=== PATIENT | female | born 1970 | race Caucasian/White ===

== ENCOUNTER 2020-02-25 07:21 | Day surgery (SDC) | payer OTHER, BC ==
--- OUTSIDE RECORDS SUMMARY | 2020-02-25 07:28 | XMS REPORT | Summary of Care ---
:1970 Author Organization [facility] Address [address] [place] [id number] Care Team Providers Name Role Phone Abimbola Jones Primary Care Provider Reason for Visit Reason Comments Follow-up blood in urine Encounter Details Date Type Department Care Team Description 01/27/2020 Office Visit [facility] Family Maritza Jones FNP Acute cystitis with hematuria (Primary D x); [address] Urinary frequency; [address] [place] [address] Lower abdominal pain; [place], [place] [id number] Blood pressure elevated without history of HTN [id number] [place], [place] [phone] [id number] Allergies No Known Allergiesdocumented as of this encounter (statuses as of 01/27/2020) Medications Medication Sig Dispensed Refills Start Date End Date Status amoxicillin-clavulana TK 1 T PO BID 0 05/16/2017 Active te 875-125 mg per tablet sulfamethoxazole-trim Take 1 tablet by 20 tablet 0 01/27/2020 02/06/2020 Active ethoprim (BACTRIM DS) mouth 2 (two) 800-160 mg per times daily for tabletIndications: 10 days. Acute cystitis with hematuria documented as of this encounter (statuses as of 01/27/2020) Active Problems Problem Noted Date BRBPR (bright red blood per rectum) 05/28/2017 B12 deficiency 11/30/2016 Low serum HDL 11/30/2016 Atypical chest pain 11/24/2016 Family history of premature CAD 11/24/2016 documented as of this encounter (statuses as of 01/27/2020) Social History Tobacco Use Types Packs/Day Years Used Date Never Smoker Smokeless Tobacco: Never Used Alcohol Use Drinks/Week oz/Week Comments Not Asked 0 Standard drinks or equivalent 0.0 Sex Assigned at Date Recorded Not on file Job Start Date Occupation Industry Not on file Not on file Not on file Travel History Travel Start Travel End No recent travel history available. documented as of this encounter Last Filed Vital Signs Vital Sign Reading Time Taken Comments Blood Pressure 148/97 01/27/2020 1:12 PM CDT Pulse 76 01/27/2020 1:11 PM CDT Temperature 37.1 C (98.7 F) 01/27/2020 1:11 PM CDT Respiratory Rate - - Oxygen Saturation - - Inhaled Oxygen Concentration - - Weight 63 kg (139 lb) 01/27/2020 1:11 PM CDT Height - - Body Mass Index 21.13 02/11/2019 8:24 PM CDT documented in this encounter Patient Instructions Patient InstructionsAbimbola Jones FNP - 01/27/2020 1:20 PM CDT Patient Education Bladder Infection,Female (Adult) Urine is normally doesn't have any bacteria in it. But bacteria can get into the urinary tract from the skin around the rectum. Or they can travel in the blood from elsewhere in the body. Once they arein your urinary tract, they can cause infection in the urethra (urethritis), the bladder (cystitis),or the kidneys (pyelonephritis). The most common place for an infection is in the bladder. This is called a bladder infection. This is one of the most common infections in women. Most bladder infections are easily treated. They are not serious unless the infection spreads to the kidney. The phrases "bladder infection," "UTI," and "cystitis" are often used to describe the same thing. But they are not always the same. Cystitis is an inflammation of the bladder. Themost common cause ofcystitis is an infection. Symptoms The infection causes inflammation in the urethra and bladder. This causes many of the symptoms. The most common symptoms of a bladder infection are: Pain or burning when urinating Having to urinate more often than usual Urgent need to urinate Only a small amount of urine comes out Blood in urine Abdominal discomfort. This is usually in the lower abdomen above the pubic bone. Cloudy urine Strong- or bad-smelling urine Unable to urinate (urinary retention) Unable to hold urine in (urinary incontinence) Fever Loss of appetite Confusion (in older adults) Causes Bladder infections are not contagious. You can't get one from someone else, from a toilet seat, or from sharing a bath. The most common cause of bladder infections is bacteria from the bowels. The bacteria get onto the skin around the opening of the urethra. From there, they can get into the urine and travel up to the bladder, causing inflammation and infection. This usually happens because of: Wiping improperly after urinating. Always wipe from front to back. Bowel incontinence Procedures such as having a catheter inserted Older age Not emptying your bladder. This can allow bacteria a chance to grow in your urine. Dehydration Constipation Sex Use of a diaphragm for control Treatment Bladder infections are diagnosed by a urine test. They are treated with antibiotics and usuallyclear up quickly without complications. Treatment helps prevent a more serious kidney infection. Medicines Medicines can help in the treatment of a bladder infection: Take antibiotics until they are used up, even if you feel better. It is important to finish them to make sure the infection has cleared. You can use acetaminophen or ibuprofen for pain, fever, or discomfort, unless another medicine was prescribed. If you have chronic liver or kidney disease, talk with your healthcareprovider beforeusingthese medicines. Also talk with your provider if you've ever had a stomach ulcer or gastrointestinal bleeding, or are taking blood-thinner medicines. If you are givenphenazopydridine to reduce burning with urination, it will cause your urine to become a bright orange color. This can stain clothing. Care and prevention These self-care steps can help prevent future infections: Drink plenty of fluids to prevent dehydration and flush out your bladder. Do thisunless you must restrict fluids for other health reasons, or your doctor told you not to. Proper cleaning after going to the bathroom is important. Wipe from front to back after using thetoilet to prevent the spread of bacteria. Urinate more often. Don't try to hold urine in for a long time. Wear loose-fitting clothes and cotton underwear. Avoid tight-fitting pants. Improve your diet and prevent constipation. Eat more fresh fruit and vegetables, andfiber, and less junk and fatty foods. Avoid sex until your symptoms are gone. Avoid caffeine, alcohol, and spicy foods. These can irritate your bladder. Urinate right after intercourse to flush out your bladder. If you use control pills and have frequent bladder infections, discuss it with your doctor. Follow-up care Call your healthcare provider if all symptoms are not gone after 3 days of treatment. This is especially important if you have repeat infections. If a culture was done, you will be told if your treatment needs to be changed. If directed, you can callto find out the results. If X-rays were done, you will be told if the results will affect yourtreatment. Call 911 Call 911 if any of the following occur: Trouble breathing Hard to wake up orconfusion Fainting or loss of consciousness Rapid heart rate When to seek medical advice Call your healthcare provider right away if any of these occur: Fever of 100.4F (38.0C) or higher, or as directed by your healthcare provider Symptoms are not betterby the third day of treatment Back or belly (abdominal) pain that gets worse Repeated vomiting, or unable to keep medicine down Weakness or dizziness Vaginal discharge Pain, redness, or swelling in the outer vaginal area (labia) Date Last Reviewed: 08/12/201619994036-1302 [employer]. [address] [place], [place] [id number]. All rights reserved. This information is not intended as a substitute for professional medical care. Always follow your healthcare professional's instructions. Patient Education When to Use Antibiotics Antibiotics are medicines used to treat infections caused by bacteria. They dont work for illnesses caused by viruses or an allergic reaction. In fact, taking antibiotics for reasons other than a bacterial infection can cause problems. For example, you may have side effects from the medicine. And if you really need an antibiotic, it may not work well. When antibiotics wont help Your healthcare provider wont usually prescribe antibiotics for the following conditions. You canhelp by not asking for them if you have: A cold. This type of illness is caused by a virus. It can cause a runny nose, stuffed-up nose, sneezing, coughing, headache, mild body aches, and low fever. A cold gets better on its own in a few days to a week. The flu (influenza). This is a respiratory illness caused by a virus. The flu usually goes away on its own in a week or so. It can cause fever, body aches, sore throat, and fatigue. Bronchitis. This is an infection in the lungs most often caused by a virus. You may have coughing, phlegm, body aches, and a low fever. A common type of bronchitis is known as a chest cold (acute bronchitis). This often happens after you have a respiratory infection like a common cold. Bronchitis can take weeks to go away, but antibiotics usually dont help. Most sore throats. Sore throats are most often caused by viruses. Your throat may feel scratchy or achy, and it may hurt to swallow. You may also have a low fever and body aches. A sore throat usually gets better in a few days. Most ear infections. An ear infection may be caused by a virus or bacteria. It causes pain in theear. Antibiotics usually dont help, and the infection goes away on its own. Most sinus infections (sinusitis). This kind of infection causes sinus pain and swelling, and a runny nose. In most cases, sinusitis goes away on its own, and antibiotics dont make recovery quicker. Allergic rhinitis. This is a set of symptoms caused by an allergic reaction. You may have sneezing, a runny nose, itchy or watery eyes, or a sore throat. Allergies are not treated with antibiotics. Low fever. A mild fever thats less than 100.4F (38C) most likely doesnt need treatment with antibiotics. When antibiotics can help Antibiotics can be used to treat: Strep throat. This is a throat infectioncaused by a certain type of bacteria. Symptoms of strep throat include a sore throat, white patches on the tonsils, red spots on the roof of the mouth, fever,body aches, and nausea and vomiting. Urinary tract infection (UTI). This is a bacterial infection of the bladder and the tube that takes urine out of the body. It can cause burning pain and urine thats cloudy or tinted with blood. UTIs are very common. Antibiotics usually help treat these infections. Some ear infections. In some cases, a healthcare provider may prescribe antibiotics for an ear infection. You may need a test to show whats causing the ear infection. Some sinus infections. In some cases, yourhealthcare provider may give you antibiotics. He or shemay first need to make sure your symptoms arent caused by a virus, fungus, allergies, or air pollutants such as smoke. Your doctor may also recommend antibiotics if you have a condition that can affect your immune system, such as diabetes or cancer. Self-care at home If your infection cant be treated with antibiotics, you can take other steps to feel better. Try the remedies below. In general: Rest and sleep as much as needed. Drink water and other clear fluids. Dont smoke, and avoid smoke from other people. Use nbdo-uzt-mvhjboz medicine such as acetaminophen to ease pain or fever, as directed by your healthcare provider. To treat sinus pain or nasal congestion: Put a warm, moist washcloth on your face where you feel sinus pain or pressure. Use a nasal spray with medicine or saline, as directed by your healthcare provider. Breathe in steam from a hot shower. Use a humidifier or cool mist vaporizer. To quiet a cough: Use a humidifier or cool mist vaporizer. Breathe in steam from a hot shower. Use cough lozenges. To sooth a sore throat: Suck on ice chips, popsicles, or lozenges. Use a sore throat spray. Use a humidifier or cool mist vaporizer. Gargle with saltwater. Drink warm liquids. To ease ear pain: Hold a warm, moist washcloth on the ear for 10 minutes at a time. [employer] last reviewed this educational content on 07/13/201619993086-5856 [employer]. [address] [place] [address], [place] [address]. All rights reserved. This information is not intended as a substitute for professional medical care. Always follow your healthcare professional's instructions. Patient Education Understanding Urinary Tract Infections (UTIs) Most UTIs are caused by bacteria, although they may also be caused by viruses or fungi. Bacteria from the bowel are the most common source of infection.The infection may start because of any of the following: Sexual activity. During sex, bacteria can travel from the penis, vagina, or rectum into the urethra. Bacteria on the skinoutside the rectum may travel into the urethra. This is more common in women since the rectum and urethra are closer to each other than in men. Wiping from front to back after using the toilet and keeping the area clean can help prevent germs from getting to the urethra. Blockage of urine flow through the urinary tract. If urine sits too long, germs may start to growout of control. Parts of the urinary tract The infection canoccur in any part of the urinary tract. The kidneys collect and store urine. The ureters carry urine from the kidneys to the bladder. The bladder holds urine until you are ready to let it out. The urethra carries urine from the bladder out of the body. It is shorter in women, so bacteria can move throughit more easily.The urethra is longer in men, so a UTI is less likely to reach the bladder or kidneys in men. [employer] reviewed this educational content on 11/12/201619991333-9185 The [employer]. [address] [place] [address], [place] [address]. All rights reserved. This information is not intended as a substitute for professional medical care. Always follow your healthcare professional's instructions. documented in this encounter Progress Notes Abimbola Jones FNP - 01/27/2020 1:20 PM CDT Cc: Chief Complaint Patient presents with Follow-up blood in urine Ananya Ryan is a 50 year old female. Patient is here with UTI symptoms as detailed below. Started after her menses, she thought it was residual spotting from completing her menses, especially blood when she wipes or urinates. She also hasflank pain on the left side, urgency, frequency and suprapubic pain. She has an appoitment with [facility] next week to discuss this and for PAP, but wanted to r/o other etiology to the hematuria. URINARY TRACT INFECTION Patient presents to clinic today with complaints of flank pain, frequency, hematuria and urgency. This is a new problem. The current episode started in the past 7 days. The problem is unchanged. Her pain is at a severity of 4/10. The pain is mild. Patient describes pain as aching. There has been no fever. She describes her urine color as yellow. Obstructive symptoms do not include dribbling, incomplete emptying, an intermittent stream, a slower stream, straining or a weak stream. Associated symptoms include abdominal pain (suprapubic) and flank pain. Pertinent negatives include no chills, fever, na usea or vomiting. She has tried increased fluids for the symptoms.The treatment provided no relief. Her sexual activity is non-contributory to the current illness. There is no history of kidney stones,recent infection or recurrent UTIs. Allergies Ananya has No Known Allergies. Medications Outpatient Medications Prior to Visit Medication Sig Dispense Refill amoxicillin-clavulanate 875-125 mg per tablet TK 1 T PO BID 0 No facility-administered medications prior to visit. Histories Past Medical History: Diagnosis Date Vertigo saw Neurology Past Surgical History: Procedure Laterality Date SECTION Social History Socioeconomic History Marital status: Spouse name: Not on file Number of children: Not on file Years of education: Not on file Highest education level: Not on file Occupational History Not on file Social Needs Financial resource strain: Not on file Food insecurity: Worry: Not on file Inability: Not on file Transportation needs: Medical: Not on file Non-medical: Not on file Tobacco Use Smoking status: Never Smoker Smokeless tobacco: Never Used Substance and Sexual Activity Alcohol use: Not on file Drug use: Not on file Sexual activity: Not on file Lifestyle Physical activity: Days per week: Not on file Minutes per session: Not on file Stress: Not on file Relationships Social connections: Talks on phone: Not on file Gets together: Not on file Attends uatsdin service: Not on file Active member of club or organization: Not on file Attends meetings of clubs or organizations: Not on file Relationship status: Not on file Intimate partner violence: Fear of current or ex partner: Not on file Emotionally abused: Not on file Physically abused: Not on file Forced sexual activity: Not on file Other Topics Concern Not on file Social History Narrative Not on file Family History Problem Relation Age of Onset No Significant Medical Problems Mother Heart Father Coronary Heart Disease Father No Significant Medical Problems Sister No Significant Medical Problems Brother Review of Systems Constitutional: Negative. Negative for chills and fever. Respiratory: Negative. Negative for apnea, cough, choking, chest tightness, shortness of breath andwheezing. Cardiovascular: Negative. Negative for chest pain, palpitations and leg swelling. Gastrointestinal: Positive for abdominal pain (suprapubic). Negative for nausea and vomiting. Genitourinary: Positive for dysuria, urgency and flank pain. Negative for incomplete emptying. Skin: Negative. Neurological: Negative. Endocrine: Endocrine negative Vital Signs BP (!) 148/97 | Pulse 76 | Temp 37.1 C (98.7 F) (Tympanic) | Wt 139 lb (63 kg) | BMI 21.13 kg/m Physical Exam Constitutional: She is oriented to person, place, and time. She appears well- developed and well-nourished. HENT: Head: Normocephalic. Right Ear: External ear normal. Left Ear: External ear normal. Nose: Nose normal. Neck: Normal range of motion. Neck supple. No JVD present. Cardiovascular: Normal rate, regular rhythm, normal heart sounds and intact distal pulses. Exam reveals no gallop and no friction rub. No murmur heard. Pulmonary/Chest: Effort normal and breath sounds normal. No respiratory distress. She has no wheezes. She has no rales. She exhibits no tenderness. Abdominal: Soft. Bowel sounds are normal. She exhibits no distension. There is no tenderness. There is CVA tenderness (left). Neurological: She is alert and oriented to person, place, and time. Skin: Skin is warm and dry. Capillary refill takes less than 2 seconds. No rash noted. No erythema. No pallor. Psychiatric: She has a normal mood and affect. Nursing note and vitals reviewed. Assessment/Plan 1. Urinary frequency: Will get a POCT UA Component Ref Range & Units 13:35 POCT U SP GRAV 1.005 - 1.025 mg/dl 1.010 POCT PH U 5 - 8 mg/dl 7 POCT U LEUK EST Negative - Negative trace POCT U NIT Negative - Negative negative POCT U PROT Negative - Negative trace POCT U GLU Negative - Negative normal POCT U KETONE Negative - Negative negative POCT U UROBILI 0.2 - 1 mg/dl normal POCT U BILI Negative - Negative negative POCT U BLD Negative - Negative 250 POCT U COLOR POCT U APPEAR Specimen Collected: 01/27/20 13:35 Last Resulted: 01/27/20 13:35 2. UTI: Bactrim given. Increase fluids, namely water. UCx is pending. Discussed ways of decreasing the risk of future UTIs including wiping from front to back, increasing intake of water, emptying the bladder at regular intervals/avoiding holding urine for prolonged periods of time, and urinating after sexual intercourse. 3. Abdominal pain: to r/o other etiology such as kidney stone, will get a KUB, CBC. Further interventions to follow depending on study result. 4. Elevated blood pressure: Monitor blood pressures at home routinely, first thing in the morning and last thing before bed, record the readings. If consistently >130/80, please RTC for management.If with acute chestpain, jaw pain, numbness and tingling radiating to arm, with or without respiratory distress, please go to the ER. Plan of care, desired health behaviors, goals, and medication discussed with patient. Education resources provided and reviewed with AVS. Patient/guardian/family verbalized understanding & agrees to plan of care. This visit did not involve counseling and coordination that comprised more than 50% of the visit time. If applicable, the [place] [employer] database was accessed to review any controlled substance prescription claims data. The [employer] prescription claims data in [employer] was reviewed to assess patient compliance with the medication treatment plan. documented in this encounter Plan of Treatment Name Type Priority Associated Diagnoses Order S chedule URINE CULTURE LAB Routine Urinary frequency Expected: 01/27/2020, Expires: 2020 CBC WITH DIFF LAB Routine Urinary frequency Ordered: 01/27/2020 CBC WITH DIFFERENTIAL LAB Routine Urinary frequency O rdered: 01/27/2020 XR KUB IMAGING Routine Lower abdominal pain Expecte d: 01/27/2020, Expires: 2020 Health Maintenance Due Date Last Done Comments DTaP,Tdap,and Td Vaccines (1 - 1982 Tdap) PAP SMEAR 1992 Breast Cancer Screening 2011 (MAMMOGRAM) INFLUENZA VACCINE (#1) 2019 PNEUMOCOCCAL 0-64 YEARS COMBINED Aged Out No longer eligible based on SERIES patient's age to complete this topic documented as of this encounter Procedures Procedure Name Priority Date/Time Associated Diagnosis Comme nts POCT URINALYSIS Routine 01/27/2020 1:35 PM Urinary frequency Results for this CDT procedure are i n the results section. documented in this encounter Results POCT URINALYSIS W SPECIFIC GRAVITY (01/27/2020 1:35 PM CDT) Pathologist Sig nature POCT U SP GRAV 1.010 1.005 - 1.025 mg/dl POCT PH U 7 5 - 8 mg/dl POCT U LEUK EST trace Negative - Negative POCT U NIT negative Negative - Negative POCT U PROT trace Negative - Negative POCT U GLU normal Negative - Negative POCT U KETONE negative Negative - Negative POCT U UROBILI normal 0.2 - 1 mg/dl POCT U BILI negative Negative - Negative POCT U BLD 250 Negative - Negative POCT U COLOR POCT U APPEAR Specimen Urine - URINE, CLEAN CATCH documented in this encounter Visit Diagnoses Diagnosis Acute cystitis with hematuria - Primary Acute cystitis Urinary frequency Lower abdominal pain Abdominal pain, other specified site Blood pressure elevated without history of HTN Elevated blood pressure reading without diagnosis of hypertension documented in this encounter Insurance Payer Benefit Plan Subscriber ID Effective Dates Phone Address Type / Group AETNA AETNA TRS [id number] 2014-Juan José PPO CARE t [facility] [id number] 2017-Juan José [phone] [address] PPO/POS [facility] t [id number] [place] [address] documented as of this encounter
--- OUTSIDE RECORDS SUMMARY | 2020-02-25 07:29 | XMS REPORT | Summary of Care ---
:1970 Author Organization [facility] Address [address] [place] [address] Care Team Providers Name Role Phone Abimbola Jones STEPDOWN NURSE Primary Care Provider Reason for Referral (Routine) Status Reason Specialty Diagnoses / Referred By Referred To Procedures Contact Contact New Request Urology Diagnoses Hematuria, unspecified type Abimbola Jones, Procedures CONSULT/REFERRAL UROLOGY STEPDOWN NURSE [address] [address] Reason for Visit Reason Comments Follow-up blood in urine Auth/Cert Status Reason Specialty Diagnoses / Procedures Referred By Anuja brown Referred To Contact Phlebotomy Diagnoses Urinary frequency Adc Pob Lab Draw Procedures CBC WITH DIFF CBC WITH DIFFERENTIAL Professional Office [address], [address] [place] [address] Fax: Encounter Details Date Type Department Care Team Description 01/27/2020 Office Visit [facility] Family Maritza Jones STEPDOWN NURSE Acute cystitis with hematuria (Primary D x); Medicine - [place] [address] [address] [facility] Urinary frequency; [facility] Lower abdominal pain; [place] [address] Blood pressure elevated without history of HTN; [address] [place], [place] Hematuria, unspecified type [phone] [address] Allergies No Known Allergiesdocumented as of this encounter (statuses as of 01/29/2020) Medications Medication Sig Dispensed Refills Start Date End Date Status amoxicillin-clavulana TK 1 T PO BID 0 05/16/2017 Active te 875-125 mg per tablet sulfamethoxazole-trim Take 1 tablet by 20 tablet 0 01/27/2020 02/06/2020 Active ethoprim (BACTRIM DS) mouth 2 (two) 800-160 mg per times daily for tabletIndications: 10 days. Acute cystitis with hematuria documented as of this encounter (statuses as of 01/29/2020) Active Problems Problem Noted Date BRBPR (bright red blood per rectum) 05/28/2017 B12 deficiency 11/30/2016 Low serum HDL 11/30/2016 Atypical chest pain 11/24/2016 Family history of premature CAD 11/24/2016 documented as of this encounter (statuses as of 01/29/2020) Social History Tobacco Use Types Packs/Day Years [...] outer vaginal area (labia) Date Last Reviewed: 08/12/201619995064-6158 [employer]. [address] [place] [address], [place] [address]. All rights reserved. This information is not [...] and avoid smoke from other people. Use nszf-iqq-lbkeswj medicine such as acetaminophen to ease pain [...] ear for 10 minutes at a time. [employer] last reviewed this educational content on 07/13/201619995356-97[address] [employer] [place] [address]. All rights reserved. This information is not [...] reach the bladder or kidneys in men. [employer] last reviewed this educational content on 11/12/201619992059-[address] [employer] [place] [address]. All rights reserved. This information is not [...] suprapubic pain. 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 If applicable, the [facility] database was accessed to review any controlled substance prescription claims data. The [employer] prescription claims data in [employer] was reviewed to assess patient compliance with the medication treatment plan. documented in this encounter Plan of Treatment Health Maintenance Due Date Last Done Comments DTaP,Tdap,and Td Vaccines (1 - 1982 Tdap) PAP SMEAR 1992 Breast Cancer Screening 2011 (MAMMOGRAM) INFLUENZA VACCINE (#1) 2019 PNEUMOCOCCAL 0-64 YEARS COMBINED Aged Out No longer eligible based on SERIES patient's age to complete this topic documented as of this encounter Procedures Procedure Name Priority Date/Time Associated Comments Diagnosis CBC WITH DIFFERENTIAL Routine 01/27/2020 2:25 Urinary frequen cy Results for this PM CDT procedure are i n the results section. CBC WITH DIFFERENTIAL Routine 01/27/2020 2:25 Urinary frequen cy Results for this PM CDT procedure are i n the results section. POCT URINALYSIS Routine 01/27/2020 1:35 Urinary frequency Res ults for this PM CDT procedure are i n the results section. URINE CULTURE Routine 01/27/2020 1:33 Urinary frequency Resul ts for this PM CDT procedure are i n the results section. documented in this encounter Results XR KUB (01/27/2020 2:36 PM CDT) Specimen Narrative Performed At HISTORY: Rule out Kidney stones. PACS/VR/DOSE FINDINGS: 2 abdominal radiographs are submitted which showed constipation with retained fecal material and air throughout large bowel. No calcified kidney stones are seen. 3 small calcific ations in the left side of the pelvis are consistent with phleboliths. No organomegaly. No aggressive bone lesi ons. CONCLUSIONS: Constipation. No radiopaque kidney stones visualized. Procedure Note [facility], Radiant Results Inft User - 2019 2:44 PM CDT HISTORY: Rule out Kidney stones. FINDINGS: 2 abdominal radiographs are jimenez bmitted which showed constipation with retained fecal material and air thr oughout large bowel. No calcified kidney stones are seen. 3 small calcific ations in the left side of the pelvis are consistent with phleboliths. No organomegaly. No aggressive bone lesi ons. CONCLUSIONS: Constipation. No radiopaque kidney stones visualized. Performing Organization Address City/State/Zipcode Phone Number PACS/VR/DOSE CBC WITH DIFFERENTIAL (01/27/2020 2:25 PM CDT) Pathologist Sig nature WBC 6.34 4.30 - 11.10 [facility] 10*3/L [facility] RBC 4.24 3.93 - 5.25 [facility] 10*6/L [facility] HGB 10.4 (L) 11.6 - 15.0 [facility] g/dL [facility] HCT 33.8 (L) 35.7 - 45.2 % [facility] MCV 79.7 (L) 80.6 - 95.5 fL [facility] MCH 24.5 (L) 25.9 - 32.8 pg [facility] MCHC 30.8 (L) 31.6 - 35.1 [facility] g/dL [facility] RDW-SD 46.8 39.0 - 49.9 fL [facility] RDW-CV 16.2 (H) 12.0 - 15.5 % [facility] PLT 375 (H) 166 - 358 [facility] 10*3/L [facility] MPV 10.4 9.5 - 12.9 fL [facility] NRBC/100 WBC 0.0 0.0 - 10.0 /100 [facility] WBCs [facility] NRBC x10^3 <0.01 10*3/L [facility] GRAN MAT (NEUT) % 77.1 % [facility] IMM GRAN % 0.50 % [facility] LYMPH % 16.6 % [facility] MONO % 4.1 % [facility] EOS % 1.1 % [facility] BASO % 0.6 % [facility] GRAN MAT x10^3(ANC) 4.89 1.88 - 7.09 [facility] 10*3/uL [facility] IMM GRAN x10^3 0.03 0.00 - 0.06 [facility] 10*3/uL [facility] LYMPH x10^3 1.05 (L) 1.32 - 3.29 [facility] 10*3/uL [facility] MONO x10^3 0.26 (L) 0.33 - 0.92 [facility] 10*3/uL [facility] EOS x10^3 0.07 0.03 - 0.39 [facility] 10*3/uL [facility] BASO x10^3 0.04 0.01 - 0.07 [facility] 10*3/uL [facility] Specimen Blood Performing Organization Address City/State/Zipcode Phone Number [facility] CLIA: [id number], [address] [place], [place] [address] POCT URINALYSIS W SPECIFIC GRAVITY (01/27/2020 1:35 [...] APPEAR Specimen Urine - URINE, CLEAN CATCH URINE CULTURE (01/27/2020 1:33 PM CDT) URINE CULTURE 10,000 - 100,[address] [facility] CFU/mL mixed aerobic SERVICES organisms - suggests endogenous microbial contamination Specimen Urine - URINE, CLEAN CATCH Performing Organization Address City/State/Zipcode Phone Number [facility] SERVICES CLIA: [id number], [address] [place], [place] [address] [facility] documented in this encounter Visit Diagnoses Diagnosis Acute cystitis with hematuria - Primary Acute cystitis Urinary frequency Lower abdominal pain Abdominal pain, other specified site Blood pressure elevated without history of HTN Elevated blood pressure reading without diagnosis of hypertension Hematuria, unspecified type documented in this encounter Insurance Payer Benefit Plan Subscriber ID Effective Dates Phone Address Type / Group AETNA AETNA TRS [id number] 2014-Juan José PPO CARE t [facility] [id number] 2017-Juan José [phone] [address] PPO/POS [place] SELECT t 7 [id number] [place] [address] documented as of this encounter
--- OUTSIDE RECORDS SUMMARY | 2020-02-25 07:29 | XMS REPORT | Summary of Care ---
:1970 Author Organization [facility] Address [address] [place] [address] Care Team Providers Name Role Phone Abimbola Jones Primary Care Provider Reason for Visit Reason Comments LAB WORK Auth/Cert Status Reason Specialty Diagnoses / Procedures Referred By Anuja brown Referred To Contact Phlebotomy Diagnoses Urinary frequency Adc Pob Lab Draw Procedures CBC WITH DIFF CBC WITH DIFFERENTIAL Professional Office [address] , [address] [place] [address] Fax: Encounter Details Date Type Department Care Team Description 01/27/2020 Credit Controller Visit [facility] Abimbola Jones FNP [address] [address] Routine general Professional Office Pob, Adc Lab Main medical examination Building Phlebotomy at a [facility] care Lab facility Professional Office Building [address] [place] [address] , [address] [place] [address] Allergies No Known Allergiesdocumented as of this [...] of this encounter Last Filed Vital Signs Not on filedocumented in this encounter Plan of Treatment Date Type Specialty Care Team Description 01/27/2020 Hospital Encounter Radiology Maritza Jones, DIVINA Arrived [address] [address] Health Maintenance Due Date Last Done Comments DTaP,Tdap,and Td Vaccines (1 - 1982 Tdap) PAP SMEAR 1992 Breast Cancer Screening 2011 (MAMMOGRAM) INFLUENZA VACCINE (#1) 2019 PNEUMOCOCCAL 0-64 YEARS COMBINED Aged Out No longer eligible based on SERIES patient's age to complete this topic documented as of this encounter Results Not on filedocumented in this encounter Visit Diagnoses Diagnosis Routine general medical examination at a health care facility documented in this encounter Insurance Payer Benefit Plan Subscriber ID Effective Dates Phone Address Type / Group AETNA AETNA TRS [id number] 2014-Presen PPO CARE t [employer] [place] [id number] 2017-Juan José [phone] [address] PPO/POS [place] SELECT t 7 [id number] [place] [address] documented as of this encounter
--- OUTSIDE RECORDS SUMMARY | 2020-02-25 07:29 | XMS REPORT | Summary of Care ---
:1970 Author Organization [facility] Address [address] [place] [address] Care Team Providers Name Role Phone Abimbola Jones Primary Care Provider Reason for Visit Reason Comments Follow-up blood in urine Encounter Details Date Type Department Care Team Description 01/27/2020 Office Visit [facility] Family Maritza Jones FNP Acute cystitis with hematuria (Primary D x); [address] Urinary frequency; [address] [place] [address] Lower abdominal pain; [place], [place] [id number] Blood pressure elevated without history of HTN [address] [place], [place] [phone] Allergies No Known Allergiesdocumented as of this [...] documented in this encounter Patient Instructions Patient InstructionsAibmbola Jones FNP - 01/27/2020 1:20 PM CDT [...] outer vaginal area (labia) Date Last Reviewed: 08/12/201619997269-2301 [employer] [address] [place], [place] [id number]. All rights reserved. This information is not [...] and avoid smoke from other people. Use ywmh-ezl-azszvqa medicine such as acetaminophen to ease pain [...] ear for 10 minutes at a time. [employer] last reviewed this educational content on 07/13/201619993767-0742 [employer] [address] [place] [address], [place] [address]. All rights reserved. This information is not [...] reach the bladder or kidneys in men. [employer] reviewed this educational content on 11/12/201619993264-8052 [employer] [address] [place] [address], [place] [address]. All rights reserved. This information is not [...] suprapubic pain. She has an appoitment with GLOVE CLEANER next week to discuss this and for [...] of the visit time. If applicable, the [place] [employer] database was accessed to review any controlled substance prescription claims data. The [employer] prescription claims data in [employer] was reviewed to assess patient compliance with [...] Address Type / Group AETNA AETNA TRS [id number] 2014-Juan José PPO CARE t [facility] [id number] 2017-Juan José [phone] [address] PPO/POS [facility] t 7 [id number] [place] [address] documented as of this encounter
--- OUTSIDE RECORDS SUMMARY | 2020-02-25 07:29 | XMS REPORT | Summary of Care ---
:1970 Author Organization [facility] Address [address] [place] [address] Care Team Providers Name Role Phone Abimbola Jones Primary Care Provider Reason for Visit Auth/Cert Status Reason Specialty Diagnoses / Procedures Referred By Anuja brown Referred To Contact Phlebotomy Diagnoses Urinary frequency Adc Pob Lab Draw Procedures CBC WITH DIFF CBC WITH DIFFERENTIAL Professional Office Ever [address], [address] [place] [address] Fax: Encounter Details Date Type Department Care Team Description 01/27/2020 Hospital Encounter [facility] Anuja Medel FNP Arrived [facility] [address] [place] [address] [place], [place] [phone] [address] Allergies No Known Allergiesdocumented as of this encounter (statuses as of 01/28/2020) Medications Medication Sig Dispensed Refills Start Date End Date Status amoxicillin-clavulana TK 1 T PO BID 0 05/16/2017 Active te 875-125 mg per tablet sulfamethoxazole-trim Take 1 tablet by 20 tablet 0 01/27/2020 02/06/2020 Active ethoprim (BACTRIM DS) mouth 2 (two) 800-160 mg per times daily for tabletIndications: 10 days. Acute cystitis with hematuria documented as of this encounter (statuses as of 01/28/2020) Active Problems Problem Noted Date BRBPR (bright red blood per rectum) 05/28/2017 B12 deficiency 11/30/2016 Low serum HDL 11/30/2016 Atypical chest pain 11/24/2016 Family history of premature CAD 11/24/2016 documented as of this encounter (statuses as of 01/28/2020) Social History Tobacco Use Types Packs/Day Years [...] filedocumented in this encounter Plan of Treatment Health [...] Name Priority Date/Time Associated Diagnosis Comme nts XR KUB Routine 01/27/2020 2:36 PM Lower abdominal pain Results for this CDT procedure are i n the results section . documented in this encounter Results XR KUB [...] Performing Organization Address City/State/Zipcode Phone Number PACS/VR/DOSE documented in this encounter Visit Diagnoses Diagnosis Lower abdominal pain Abdominal pain, other specified site documented in this encounter Insurance Payer Benefit Plan Subscriber ID Effective Dates Phone Address Type / Group AETNA AETNA TRS [id number] 2014-Juan José PPO CARE t [facility] [id number] 2017-Juan José [phone] [address] PPO/POS [facility] t 7 [id number] [place] [address] documented as of this encounter
--- OUTSIDE RECORDS SUMMARY | 2020-02-25 07:30 | XMS REPORT | Summary of Care ---
:1970 Author Organization [facility] Address [address] [place] [address] Care Team Providers Name Role Phone Abimbola Jones Primary Care Provider Reason for Visit Reason Comments Rx Concern/Question Encounter Details Date Type Department Care Team Description 02/02/2020 Telephone [facility] Family Maritza Jones FNP Rx Concern/Question Medicine - [address] [facility] [address] [place] [address] [place], [place] [phone] [address] Allergies No Known Allergiesdocumented as of this encounter (statuses as of 02/02/2020) Medications Medication Sig Dispensed Refills Start Date End Date Status amoxicillin-clavulana TK 1 T PO BID 0 05/16/2017 Active te 875-125 mg per tablet sulfamethoxazole-trim Take 1 tablet by 20 tablet 0 01/27/2020 02/06/2020 Active ethoprim (BACTRIM DS) mouth 2 (two) 800-160 mg per times daily for tabletIndications: 10 days. Acute cystitis with hematuria documented as of this encounter (statuses as of 02/02/2020) Active Problems Problem Noted Date BRBPR (bright red blood per rectum) 05/28/2017 B12 deficiency 11/30/2016 Low serum HDL 11/30/2016 Atypical chest pain 11/24/2016 Family history of premature CAD 11/24/2016 documented as of this encounter (statuses as of 02/02/2020) Social History Tobacco Use Types Packs/Day Years [...] filedocumented in this encounter Visit Diagnoses Diagnosis Acute cystitis with hematuria Acute cystitis documented in this encounter Insurance Payer Benefit Plan Subscriber ID Effective Dates Phone Address Type / Group AETNA AETNA TRS [id number] 2014-Juan José PPO CARE t [facility] [id number] 2017-Juan José [phone] [address] PPO/POS [place] [employer] t 7 [id number] [place] [address] documented as of this encounter
--- OUTSIDE RECORDS SUMMARY | 2020-02-25 07:30 | XMS REPORT ---
:1970 Author Organization [facility] t Address [address] [place] [address] Dr. Hu [address] [place] [address] Care Team Providers Name Role Phone Unavailable Unavailable Unavailable Problems This patient has no known problems. Allergies, Adverse Reactions, Alerts This patient has no known allergies or adverse reactions. Medications This patient has no known medications.
--- OUTSIDE RECORDS SUMMARY | 2020-02-25 07:30 | XMS REPORT | Summary of Care ---
:1970 Author Organization [facility] Address [address] [place] [address] Care Team Providers Name Role Phone Abimbola Jones SISTER SUPERIOR Primary Care Provider Reason for Referral (Routine) Status Reason Specialty Diagnoses / Referred By Referred To Procedures Contact Contact New Request Urology Diagnoses Hematuria, unspecified type Abimbola Jones, Procedures CONSULT/REFERRAL UROLOGY SISTER SUPERIOR [address] [address] Reason for Visit Reason Comments Follow-up blood in urine Auth/Cert Status Reason Specialty Diagnoses / Procedures Referred By Anuja brown Referred To Contact Phlebotomy Diagnoses Urinary frequency Adc Pob Lab Draw Procedures CBC WITH DIFF CBC WITH DIFFERENTIAL Professional Office [address], [address] [place] [address] Fax: Encounter Details Date Type Department Care Team Description 01/27/2020 Office Visit [facility] Maritza Jones SISTER SUPERIOR Acute cystitis with hematuria (Primary D x); Medicine - [place] [address] [address] [facility] Urinary frequency; [facility] Lower abdominal pain; [place] [address] Blood pressure elevated without history of HTN; [address] [place], [place] Hematuria, unspecified type; [phone] [address] Anemia, unspecified type [phone] Allergies No Known Allergiesdocumented as of this [...] outer vaginal area (labia) Date Last Reviewed: 08/12/201619994856-9263 [employer]. [address] [place] [address], [place] [address]. All rights reserved. This information is not [...] and avoid smoke from other people. Use vgko-erz-wquigtg medicine such as acetaminophen to ease pain [...] ear for 10 minutes at a time. [employer] last reviewed this educational content on 07/13/201619999292-4089 [employer]. [address] [place] [address]. All rights reserved. This information is not [...] reach the bladder or kidneys in men. [employer] last reviewed this educational content on 11/12/201619995677-5411 [employer]. [address] [place] [address]. All rights reserved. This information is not [...] suprapubic pain. She has an appoitment with [employer] next week to discuss this and for [...] file Gets together: Not on file Attends scientologist service: Not on file Active member of [...] of the visit time. If applicable, the [facility] database was accessed to review any controlled substance prescription claims data. The [employer] prescription claims data in [employer] was reviewed to assess patient compliance with the medication treatment plan. documented in this encounter Plan of Treatment Name Type Priority Associated Diagnoses Order S chedule FERRITIN SERUM LAB Routine Anemia, unspecified type E xpected: 01/29/2020, Expires: 2020 TOTAL IRON BINDING LAB Routine Anemia, unspecified ty pe Expected: 01/29/2020, CAPACITY Expires: 2020 IRON LAB Routine Anemia, unspecified type Exp ected: 01/29/2020, Expires: 2020 Health Maintenance Due Date Last [...] Sig nature WBC 6.34 4.30 - 11.10 [facility] 10*3/L [facility] RBC 4.24 3.93 - 5.25 [facility] 10*6/L [facility] HGB 10.4 (L) 11.6 - 15.0 [facility] g/dL [facility] HCT 33.8 (L) 35.7 - 45.2 % [facility] MCV 79.7 (L) 80.6 - 95.5 fL [facility] MCH 24.5 (L) 25.9 - 32.8 pg [facility] MCHC 30.8 (L) 31.6 - 35.1 [facility] g/dL [facility] RDW-SD 46.8 39.0 - 49.9 fL [facility] RDW-CV 16.2 (H) 12.0 - 15.5 % [facility] PLT 375 (H) 166 - 358 [facility] 10*3/L [facility] MPV 10.4 9.5 - 12.9 fL [facility] NRBC/100 WBC 0.0 0.0 - 10.0 /100 [facility] WBCs [facility] NRBC x10^3 <0.01 10*3/L [facility] GRAN MAT (NEUT) % 77.1 % [facility] IMM GRAN % 0.50 % [facility] LYMPH % 16.6 % [facility] MONO % 4.1 % [facility] EOS % 1.1 % [facility] BASO % 0.6 % [facility] GRAN MAT x10^3(ANC) 4.89 1.88 - 7.09 [facility] 10*3/uL [facility] IMM GRAN x10^3 0.03 0.00 - 0.06 [facility] 10*3/uL [facility] LYMPH x10^3 1.05 (L) 1.32 - 3.29 [facility] 10*3/uL [facility] MONO x10^3 0.26 (L) 0.33 - 0.92 [facility] 10*3/uL [facility] EOS x10^3 0.07 0.03 - 0.39 [facility] 10*3/uL [facility] BASO x10^3 0.04 0.01 - 0.07 [facility] 10*3/uL [facility]ITAL [facility] Specimen Blood Performing Organization Address City/[facility]/Zipcode Phone Number [facility] CLIA: [id number], [address] [place], [place] [address] POCT [...] PM CDT) URINE CULTURE 10,000 - 100,000 [facility] CFU/mL mixed aerobic SERVICES organisms - suggests endogenous microbial contamination Specimen Urine - URINE, CLEAN CATCH Performing Organization Address City/State/Zipcode Phone Number [facility] CLIA: [id number], [address] [place], [place] [address] [facility] documented in this encounter Visit Diagnoses Diagnosis Acute cystitis with hematuria - Primary Acute cystitis Urinary frequency Lower abdominal pain Abdominal pain, other specified site Blood pressure elevated without history of HTN Elevated blood pressure reading without diagnosis of hypertension Hematuria, unspecified type Anemia, unspecified type documented in this encounter Insurance Payer Benefit Plan Subscriber ID Effective Dates Phone Address Type / Group AETNA AETNA TRS [id number] 2014-[employer] PPO CARE t BCBS OF [facility] [id number] 2017-Juan José [phone] [address] PPO/POS [place] [facility] t 7 [id number] [place] [address] documented as of this encounter
[2020-02-25] MEDS ORDERED: Ringers Lactate 1,000 ML IV ONE (07:34)
[2020-02-25] MEDS ORDERED: propofoL 200 MG/20 ML VIAL IV ONE (07:45)
[2020-02-25] MEDS ORDERED: LIDOCAINE 2% MPF 5 ML VIAL ONE (07:45)
[2020-02-25] MEDS ORDERED: dexAMETHasone 10 MG/ML VIAL ONE (07:45)
[2020-02-25] MEDS ORDERED: FENTANYL CITR 100 MCG/2 ML ONE (07:45)
[2020-02-25] MEDS ORDERED: MIDAZOLAM HCL 2 MG/2 ML INJ ONE (07:45)
[2020-02-25] MEDS ORDERED: LIDOCAINE 1% W/EPI 1:100,000 MDV 20 ML VIAL ONE (07:49)
[2020-02-25] MEDS ORDERED: KETOROLAC 30 MG/ML INJ ONE (08:38)
[2020-02-25 09:40] VITALS: TEMP 98.3; O2SAT 100
[2020-02-25 09:59] VITALS: BP 122/82
--- NOTE | 2020-02-26 00:07 | OP ---
Date of Procedure: 02/25/2020 Surgeon: Theresa Freeman MD Preoperative Diagnosis: Menorrhagia (AUB-L) Postoperative Diagnosis: Menorrhagia (AUB-L) Procedure Performed: Hysteroscopy, D and C. Anesthesia: General. Specimens: Endometrial curettings. Complications/drains: No complications, drains. Findings: Uterus enlarged about 16- to 18-week size, large anterior fibroid more towards the right, palpable on clinical exam while the patient was under anesthesia. The hysteroscope was inserted all the way to 12.5-13 cm to the top of the fundus that was the sounding length the external os. No intr acavitary masses or irregular endometrium was noted. Large clots were present, which were evacuated out. Endometrial sampling was performed adequately. Indications: The patient is a 50-year-old with pelvic pressure and the bleeding symptoms. On examin ation, her uterus found to be enlarged. Transvaginal ultrasound showed an intrauterine mass, most li milena close to the endometrium, unsure if this was hematometra or the pyosalpinx is very difficult to differentiate the mass that was present and define it, so the patient was counseled due to her age an d the bleeding history besides the ultrasound findings and also a cavity evaluation for the current p roblem and the value of the sampling to rule out atypia or malignancy or leiomyosarcoma. All these w ere reviewed with the patient. She was consented due to her very heavy bleeding. This was considere d to be an urgent case that had to be done even despite the COVID crisis. Description Of Procedure: She was consented, taken to the OR. After informed consent was verified, she was taken back to OR, placed in supine fashion on the operating table. General anesthesia given, placed in a dorsal lithotomy position using Jacques stirrups. Pelvic exam performed. The findings as above. Speculum placed to expose the cervix, prepped with Betadine x3. Anterior lip grasped with 2 Allis clamps. Diagnostic SlimLine hysteroscope used to enter the cervical canal and traversed under direct vision into the uterine cavity. Cavity was as described above, empty large clots. After thi s, these were evacuated. The endometrium appeared to be an unremarkable. No intracavitary masses, p olyps, or irregular endometrium. Both tubal ostia were well visualized. Scope was removed after lindsey nding it to the top of the fundus a 12.5- 13 cm. The endometrial curettings were performed with a #2 curette without any problems, handed off for permanent pathology. All the instruments removed. Ins trument and sponge counts were done and were correct at the end of the case. The patient tolerated t he procedure well. She was recovered from anesthesia in the OR and taken to PACU in stable condition . All COVID precautions were taken by all the staff and for the patient by covering her face with th e face-mask and similar precautions, universal precaution for all the staff. She will follow up with me in 1 week for results discussion and then followup plan. YNES/FRANCESCA Voice ID: [id number] Report ID: [id number]
== END 2020-02-25 10:15 | disposition home or self-care (01) ==
LOC: OR 07:21
PROVIDERS: ATTEND Obstetrics & Gynecology
PROC: 0UJD8ZZ Inspection of Uterus and Cervix, Via Natural or Artificial Opening Endoscopic (ICD-10-PCS; 2020-02-25)
PROC: 0UDB7ZX Extraction of Endometrium, Via Natural or Artificial Opening, Diagnostic (ICD-10-PCS; principal; 2020-02-25 08:00)
DX: N92.1 Excessive and frequent menstruation with irregular cycle (principal); R10.2 Pelvic and perineal pain; D50.0 Iron deficiency anemia secondary to blood loss (chronic); R35.0 Frequency of micturition
CPT/HCPCS: 58558; 88305; J2704; J2250; J3010; J1100; J7120

== ENCOUNTER 2020-03-25 06:37 | Day surgery (SDC) | payer OTHER, BC ==
[2020-03-22 12:44] LABS: Urine Appearance CLOUDY; Urine Bilirubin NEGATIVE (NEG); Urine Blood 3+ (NEG); Urine Color RED; Urine Glucose NEGATIVE (NEG); Urine Protein TRACE (NEG); Urine Urobilinogen 0.2 mg/dL (0.2-1.0); Urine pH 5.5 (5.0-7.0)
[2020-03-22 12:53] LABS: Absolute Lymphocytes (CBC) 1.5 K/uL (0.7-4.9); Basophils % 0.8 % (0-1.3); Hematocrit 34.5 % (36.0-45.0); Lymphocytes % 23.4 % (15.3-44.8); MPV 9.1 fL (7.6-11.3); RBC Red Blood Cell Count 4.23 M/uL (3.86-4.86)
[2020-03-22 13:05] LABS: Urine Microscopic Reflex ORDER UMIC
[2020-03-22 13:25] LABS: Anisocytosis 1+; Blood Morphology Comment NOTED (NOT SEEN); Platelet Estimate ADEQ
[2020-03-22 13:36] LABS: Urine Bacteria <20 /HPF (<20); Urine Culture Reflex Order REFLEXED; Urine RBC LOADED /HPF (NONE SEEN)
[~2020-03-25 06:37] MED LIST: FENTANYL CITR 100 MCG/2 ML ONE; LIDOCAINE 2% MPF 5 ML VIAL ONE; propofoL 200 MG/20 ML VIAL IV ONE
--- OUTSIDE RECORDS SUMMARY | 2020-03-25 06:40 | XMS REPORT ---
:1970 Author Organization [facility] t Address [address] [place] [address] Care Team Providers Name Role Phone Robert RADIO OFFICER Attending Clinician Doctor Unassigned, Name Attending Clinician Unavailable Problems This patient has no known problems. Allergies, Adverse Reactions, Alerts This patient has no known allergies or adverse reactions. Medications This patient has no known medications. Procedures This patient has no known procedures. Encounters Start End Encounter Admission Attending Care Care Encounter Source Date/Time Date/Time Type Type Clinicians Facility Department ID 2020-03-24 2020-03-24 ISSAC Prasad [id number] 00:00:00 00:00:00 [facility] [id number] [place] [id number] Professio [phone] [place] [address] [address] 2020-03-23 2020-03-23 Telephone Robert GAJESSICA [id number] 00:00:00 00:00:00 Abimbola [place] [id number] [place] [id number] Professio [phone] [place] 044 Building 2020-02-16 2020-02-16 Patient Doctor LAKESHIA [id number] 00:00:00 00:00:00 Secure Msg Unassigned, GUALBERTO [id number] Oral [facility] [id number] [id number] 2020-02-02 2020-02-02 Telephone Robert [facility] [id number] 00:00:00 00:00:00 [email or web address] [id number] [place] [id number] Professio [phone] nal [facility] Office Building One 2020-01-27 2020-01-29 Office Robert [facility] [id number] 13:03:15 08:23:[address] [facility] [id number] [place] [id number] Professio [phone] [place] [address] [address] Results This patient has no known results.
--- OUTSIDE RECORDS SUMMARY | 2020-03-25 06:40 | XMS REPORT | Summary of Care ---
:1970 Author Organization [facility] Address [address] [place] [address] Care Team Providers Name Role Phone AlysiaAbimbola cruz DIVINA Primary Care Provider Encounter Details Date Type Department Care Team Description 02/16/2020 Patient Secure [facility] Doctor Unassigned, [address] [place] [address] [place] [address] [address] [place] [address] [place] [address] Allergies No Known Allergiesdocumented as of this encounter (statuses as of 03/20/2020) Medications Medication Sig Dispensed Refills Start Date End Date Status amoxicillin-clavulanate TK 1 T PO BID 0 05/16/2017 Active 875-125 mg per tablet documented as of this encounter (statuses as of 03/20/2020) Active Problems Problem Noted Date BRBPR (bright red blood per rectum) 05/28/2017 B12 deficiency 11/30/2016 Low serum HDL 11/30/2016 Atypical chest pain 11/24/2016 Family history of premature CAD 11/24/2016 documented as of this encounter (statuses as of 03/20/2020) Social History Tobacco Use Types Packs/Day Years [...] Results Not on filedocumented in this encounter Insurance Payer Benefit Plan Subscriber ID Effective Dates Phone Address Type / Group AETNA AETNA TRS [id number] 2014-Juan José PPO CARE t BCBS OF [facility] [id number] 2017-Juan José [phone] [address] PPO/POS [facility] t 7 [id number] [place] [address] documented as of this encounter
--- OUTSIDE RECORDS SUMMARY | 2020-03-25 06:41 | XMS REPORT | Summary of Care ---
:1970 Author Organization [facility] Address [address] [place] [address] Care Team Providers Name Role Phone Abimbola Jones Primary Care Provider Reason for Visit Reason Comments Results Encounter Details Date Type Department Care Team Description 03/24/2020 Telephone [facility] Family Medicine Abimbola Barney FNP Results - [place] [address] [facility] [id number] [place] [address] [place] [phone] Allergies No Known Allergiesdocumented as of this encounter (statuses as of 03/24/2020) Medications Medication Sig Dispensed Refills Start Date End Date Status amoxicillin-clavulanate TK 1 T PO BID 0 05/16/2017 Active 875-125 mg per tablet documented as of this encounter (statuses as of 03/24/2020) Active Problems Problem Noted Date BRBPR (bright red blood per rectum) 05/28/2017 B12 deficiency 11/30/2016 Low serum HDL 11/30/2016 Atypical chest pain 11/24/2016 Family history of premature CAD 11/24/2016 documented as of this encounter (statuses as of 03/24/2020) Social History Tobacco Use Types Packs/Day Years [...] Breast Cancer Screening 2011 (MAMMOGRAM) INFLUENZA VACCINE (Season Ended) 2020 PNEUMOCOCCAL 0-64 YEARS COMBINED Aged Out No longer eligible based on SERIES patient's age to complete this topic documented as of this encounter Results Not on filedocumented in this encounter Insurance Payer Benefit Plan Subscriber ID Effective Dates Phone Address Type / Group AETNA AETNA TRS [id number] 2014-Juan José PPO CARE t BCBS OF [facility] [id number] 2017-Juan José [phone] [address] PPO/POS [facility] t 7 [id number] [place] [address] documented as of this encounter
--- OUTSIDE RECORDS SUMMARY | 2020-03-25 06:41 | XMS REPORT | Summary of Care ---
:1970 Author Organization [facility] Address [address] [place] [address] Care Team Providers Name Role Phone Abimbola Jones Primary Care Provider Reason for Visit Reason Comments Results Encounter Details Date Type Department Care Team Description 03/23/2020 Telephone [facility] Pediatric and Abimbola Jones FNP Results Adult Primary Care- [address] [place] [id number] [facility] [address], [place] [address] [address] [place] [address] [phone] Allergies No Known Allergiesdocumented as of this encounter (statuses as of 03/23/2020) Medications Medication Sig Dispensed Refills Start Date End Date Status amoxicillin-clavulanate TK 1 T PO BID 0 05/16/2017 Active 875-125 mg per tablet documented as of this encounter (statuses as of 03/23/2020) Active Problems Problem Noted Date BRBPR (bright red blood per rectum) 05/28/2017 B12 deficiency 11/30/2016 Low serum HDL 11/30/2016 Atypical chest pain 11/24/2016 Family history of premature CAD 11/24/2016 documented as of this encounter (statuses as of 03/23/2020) Social History Tobacco Use Types Packs/Day Years [...] Date Last Done Comments DTaP,Tdap,and Td Vaccines ( - 1982 Tdap) PAP SMEAR 1992 Breast Cancer Screening 2011 (MAMMOGRAM) INFLUENZA VACCINE (Season Ended) 2020 PNEUMOCOCCAL 0-64 YEARS COMBINED Aged Out No longer eligible based on SERIES patient's age to complete this topic documented as of this encounter Results Not on filedocumented in this encounter Insurance Payer Benefit Plan Subscriber ID Effective Dates Phone Address Type / Group AETNA AETNA TRS [id number] 2014-Juan José PPO CARE t BCNAVI OF [facility] [id number] 2017-Juan José [phone] [address] PPO/POS [facility] t 7 [id number] [place] [address] documented as of this encounter
[2020-03-25] MEDS ORDERED: BUPIVACAINE 0.25% PF 30 ML VIAL ONE (07:00)
[2020-03-25 07:05] LABS: Specific Gravity 1.025 (1.005-1.030)
[2020-03-25] MEDS ORDERED: Ringers Lactate 1,000 ML IV ONE ×2 (07:05→12:47)
[2020-03-25] MEDS ORDERED: SCOPOLAMINE HYDROBROMIDE PATCH TD ONE (07:10)
[2020-03-25] MEDS ORDERED: CEFAZOLIN/SWI 2gm 2 GM/20 ML SYR ONE (07:36)
[2020-03-25] MEDS ORDERED: LIDOCAINE 2% MPF 5 ML VIAL ONE (08:08)
[2020-03-25] MEDS ORDERED: ROCURONIUM 50 MG/5 ML VIAL IV ONE (08:08)
[2020-03-25] MEDS ORDERED: propofoL 200 MG/20 ML VIAL IV ONE (08:08)
[2020-03-25] MEDS ORDERED: FENTANYL CITR 250 MCG/5 ML ONE (08:09)
[2020-03-25] MEDS ORDERED: MIDAZOLAM HCL 2 MG/2 ML INJ ONE (08:09)
[2020-03-25] MEDS ORDERED: dexAMETHasone 10 MG/ML VIAL ONE (08:39)
[2020-03-25] MEDS ORDERED: DIPHENHYDRAMINE 50 MG/ML VIAL ONE (08:40)
[2020-03-25] MEDS ORDERED: ONDANSETRON 4 MG/2 ML VIAL ONE ×2 (08:40→14:28)
[2020-03-25] MEDS ORDERED: KETOROLAC 30 MG/ML INJ ONE (08:40)
[2020-03-25] MEDS ORDERED: NS 0.9% VIAL 10 ML ONE ×2 (09:14→13:23)
[2020-03-25] MEDS ORDERED: VECURONIUM 10 MG/VIAL IV ONE (09:14)
[2020-03-25] MEDS: Ringers Lactate 1,000 ML IV ONE ×2 (09:45→09:58)
[2020-03-25] MEDS ORDERED: CEFAZOLIN SODIUM 1 GM/VIAL ONE (12:49)
[2020-03-25] MEDS ORDERED: GLYCOPYRROLATE 0.2 MG/ML SYR ONE (13:20)
[2020-03-25] MEDS ORDERED: NEOSTIGMINE 1 MG/ML -5 ML ONE (13:22)
[2020-03-25] MEDS ORDERED: MEPERIDINE HCL 25 MG/0.5 ML ONE (13:23)
[2020-03-25] MEDS: HYDROMORPHONE HCL 2 MG/ML inj ONE ×2 (14:20→14:42)
[2020-03-25] MEDS ORDERED: HYDROCODONE/APAP 5/325 MG TAB ONE ×2 (15:46→16:35)
[2020-03-25 16:37] VITALS: BP 123/70; TEMP 99; O2SAT 100
--- NOTE | 2020-03-26 00:06 | OP ---
Date of Procedure: 03/25/2020 Surgeon: Theresa Freeman MD Preoperative Diagnoses: Menorrhagia, leiomyomata, pelvic pain. Postoperative Diagnoses: Menorrhagia, leiomyomata, pelvic pain. Procedures Performed: Total laparoscopic hysterectomy, bilateral salpingo-oophorectomy, mini lap for extraction of uterus, and cystoscopy, lysis of bladder adhesions and omental adhesions. It took about 30 minutes of the case for me to get started taking down the bladder adhesions, taking down the uterine and fibroid adhesion to the anterior abdominal wall and to the bladder as well and t he omental adhesions to the anterior abdominal wall and the mass. After all these was removed, these were taken down, then I was able to complete the procedure. Anesthesia: General. Specimens: Uterus, bilateral tubes and ovaries. Complications: No complications. Drains: No drains. Condition: Patient's condition is stable. Estimated Blood Loss: 50. Urine Output: 200. Indications: The patient was referred to me for pelvic pressure and pain. She has heavy menstrual b leeding as well. On investigation with an ultrasound, she was found to have a uterine wall mass that is consistent with a leiomyoma, however with some fluid within it impinging on the endometrial canal . So to rule out an endometrial mass, hysteroscopy was performed to visualize the uterine cavity and there was no endometrial mass in the endometrial canal. The endometrium was sampled. No evidence o f atypia or malignancy or leiomyosarcoma was noted. Then, we discussed about the location of the fib roid and during the examination, the consistency of the mass is very consistent with leiomyoma, so re viewed this with the patient performing an MRI would not change the plan of management as she has mas s effect from the leiomyoma and immediate relief from the bleeding and thus. She was consented for h ysterectomy, bilateral salpingectomy. The patient also requested to have an oophorectomy. As she is 50, and very close to menopause, discussed about postop hormonal therapy and then consented for a bi lateral salpingo-oophorectomy. Vaginal morcellation was discussed, I also reviewed that, there is possibility that she would need a mini-laparotomy or a laparotomy for performance of the surgery or removal of the specimen. Description Of Operation: 2 g of Ancef were given. The patient was taken back to OR, placed in a jimenez pine fashion on the operative table. General anesthesia given, placed in a dorsal lithotomy position using Jacques stirrups. Examination performed, uterus is very clearly anteflexed and dense adhesions of the anterior wall mass to the anterior abdominal wall, to the bladder from her prior sca r. After the abdomen, vulva, vagina, and perineum were prepped and draped in a sterile fashion. Pina w as placed to drain the bladder and attached for retrograde filling and medium VCare was introduced in the uterus as the cervix was only medium size. 1 cm supraumbilical incision was made with a scalpel. The fascia incised with a scalpel and tagged w ith 0 Vicryl sutures on both edges. Peritoneum entered bluntly. S retractor was placed. Evelyn int roduced. Site of entry was checked, unremarkable. There were omental adhesions immediately inferior to it and going all the way down to the uterus and the uterine adhesions to the anterior abdominal w all were from the mass and then the adhesions of the bladder to the area from below this all the way down to the level of the hysterotomy scar. A 5 mm left lower quadrant port was placed, LigaSure used to take down the omental adhesions after ma abby windows and the adhesions were taken down, then the anterior wall adhesion to the uterus and the mass were taken down systematically by making windows in the bladder. Adhesions were taken down all the way to the level of the scar, then here on the uterus the bladder adhesions were taken down as well. 5 mm left upper quadrant and right lower quadrant ports were placed under direct visi on and got started with the surgery. The left tube was removed. The utero-ovarian ligament was take n down, the round ligament was taken down, and the broad ligament opened up anteriorly to raise the b ladder flap. Once I came down here, there were adhesions to area as well. The prevesical fat was we ll exposed and the bladder was dissected on inferiorly in this plan, making sure the bladder was prot ected and the VCare cup was visualized and the anterior vaginal wall. Once I got this, then took ed n further adhesions of the bladder and once this was retracted inferiorly then the vessels on the rhina e were well exposed, then the vessels were skeletonized, taken down the posterior leaf of the broad l igament. The ureter was well visualized on the pelvic brim to the ureteric tunnel on the left side a nd much farther away from the vaginal cuff due to the presence of the fibroid, which was pulling the uterus and cervix anteriorly. So once the uterine vessels where the artery and the vein were well vi sualized that was at least 2.5 to 3 cm from the level of the crossing of the ureter under the uterine artery to the level where the vessels ascended up alongside the uterine wall. So, in this space, fi rst two 5 mm clips were placed on the uterine line anteriorly, then the uterine artery was attempted to be clipped, but the clip did not go in right as clearance due to the other veins that w ere dilated inferior to it. So, I left this in place, had to cauterize the uterine artery and vein m edial to this. Once the cauterization was performed, the pulse pressure had gone down and then I was able to cauterize the area that was attempted for clip placement. There was excellent hemostasis at this point, so moved down the opposite side. After putting a 10 mm suprapubic incision, then I was able to use the site for retraction interchangeably with supraumbilical 10 port using the 10 mm singl e-tooth laparoscopic tenaculum. Then through the right port, I am able to take down the utero-ovaria n ligament, mesosalpinx tube, round ligament, opened the broad ligament anteriorly connected the blad alonzo flap and posteriorly taken it down to the uterosacral ligament on this side, then the vessels wer e skeletonized. After the broad ligament was taken down, the vessels were taken down with the LigaSu re and the bipolar basket tip. After clearing the bladder down in the center on the anterior vaginal wall with the help of the monopolar hook blade, the bladder was dissected inferiorly. No evidence o f any damage to the bladder from this dissection or from lysis of adhesions. At least 1 cm of the an terior vaginal wall past the cup was cleared up and then medial incisions were made to the vessels wi th the monopolar hook blade in order for me to get my bipolar basket tip through this. So, once the vessels were well exposed, the vessels at the level of the bladder pillar were taken down with the he lp of the LigaSure without getting close to the ureter much farther away. I then took down the uteri ne artery and the vein with the LigaSure separately, then was able to take down the cardinal ligament s and the other veins that were dilated around this area. After all these were taken down opposite s pricilla, the vessels were cauterized and cut as well with the LigaSure and the bipolar basket tip. Then, the ureter on the right side was also much far away from the colpotomy site and dissecting the poste rior peritoneum, let it fall off the side without any tensioning or kinking. The cup was well exposed, started the colpotomy in the center coming down to the left all the way pos teriorly to the right uterosacral, then finished the right side starting at the top and connecting at the uterosacral. The entire specimen was detached and this was left in the right lower quadrant wit hout contaminating too much and cervix pointing up. The ovaries were taken down on both sides. The tube on the left side was retrieved through the left upper quadrant trocar. All the specimens were r etrieved through the vagina, the right ovary and tube that were together and then the left ovary. Vi cryl tag sutures were placed here. Loop sutures were placed here in order for us to not lose it and retrieve it safely. After finishing the retrieval vaginal bulb was placed for pneumo-occlusion. Thorough irrigation and suction of the vaginal cuff were performed. There was excellent hemostasis at all pedicles and the a ngles were closed with the help of simple 0 PDS and 3 [id number] were placed in the center to c lose the vaginal cuff. There was excellent closure and hemostasis. Ureters had no electrical, mecha nical, or thermal injury to them, was able to inject all the trocar placement sites at the fascial an d skin levels with 0.25% Marcaine at the entry and exit. Then, after all the 5s were removed, the jimenez prapubic [address] and the cervix was held with loop Vicryl and pulled out through the sup rapubic trocar. Then, the umbilical trocar was removed as well. Gas desufflated. Close suctioning was performed then. The fascia was closed with the tag 0 Vicryl sutures and the simple [id number] ht at the umbilical fascial incision, and the skin closed with interrupted 4-0 Vicryl in all incision s excepting the suprapubic one. In the suprapubic area, the incision extended to 8 cm with the help of a 10 blade. Subcutaneous tiss ues were taken down. Fascia incised. The rectus muscles taken down in the midline, them b oth and was able to enter the peritoneal cavity. This was opened up superiorly and then inferiorly, made sure that the bladder was identified and not passed this point. Then, I was able to get the cer vix out through the opening and morcellated very minimally mostly externally in order for me to retri deandre the specimen after cutting through the fibroid gently without any leakage inside the abdominal ca vity, there was a lot of thin yellowish cloudy fluid that came out from the center of the fibroid, li milena fluid from the degeneration of the central myoma. This was suctioned after by putting the Certalia uer suction within the cavity of the fibroid. Then, the entire specimen was removed without any prob lems. There was no spillage into the abdominal cavity as the size of the fibroid prevented any leaka ge there, so carefully after making sure that all the fluid was thoroughly cleaned up, all was gloves were changed, sponges were change, the peritoneum was closed with a 3-0 Vicryl in a continuous runni ng fashion and then thorough irrigation and suction were performed. Then, rectus muscles brought tog ether with 3 interrupted 0 Vicryl sutures. Fascia closed with a simple 0 Vicryl running suture and _ Marcaine was placed at the lateral margins of the lateral 1/3rd of the rectus muscle betwee n the fascial sheath of the internal and transversus on the right side and on the left side 10 mL eac h was placed above and below the level of the incision along the course of the nerve and then the fas colton closed on top of it. Then subcutaneous tissues were left where after thorough irrigation and suc tion, the skin was closed with the help of continuous running 4-0 Vicryl subcuticular suture. All th e other incisions closed with interrupted 4-0 Vicryl. Cystoscopy was performed with a 17-Tamazight sheath, 30-degree lens normal saline. Normal jets of urine from both ureteric orifices. No evidence of any trauma to the bladder. Excellent efflux, bladder d rained, vaginal canal cleaned up as well. Instrument, needle, and sponge counts x3 were correct at t he end of the case. The patient tolerated the procedure well. She will be discharged home today wit h an abdominal binder. Discussed the findings with Ms. Paz Evans Connor, who is Ananya's mom. YNES/FRANCESCA Voice ID: [id number] Report ID: [id number]
== END 2020-03-25 18:00 | disposition home or self-care (01) ==
LOC: OR 06:37
PROVIDERS: ATTEND Obstetrics & Gynecology
PROC: 0UT24ZZ Resection of Bilateral Ovaries, Percutaneous Endoscopic Approach (ICD-10-PCS; 2020-03-25)
PROC: 0UT74ZZ Resection of Bilateral Fallopian Tubes, Percutaneous Endoscopic Approach (ICD-10-PCS; 2020-03-25)
PROC: 0TNB4ZZ Release Bladder, Percutaneous Endoscopic Approach (ICD-10-PCS; 2020-03-25)
PROC: 0DNU4ZZ Release Omentum, Percutaneous Endoscopic Approach (ICD-10-PCS; 2020-03-25)
PROC: 0UT94ZZ Resection of Uterus, Percutaneous Endoscopic Approach (ICD-10-PCS; principal; 2020-03-25 08:00)
DX: N92.1 Excessive and frequent menstruation with irregular cycle (principal); Z11.59 Encounter for screening for other viral diseases; D25.9 Leiomyoma of uterus, unspecified; N81.2 Incomplete uterovaginal prolapse; K66.0 Peritoneal adhesions (postprocedural) (postinfection); N32.89 Other specified disorders of bladder; D50.0 Iron deficiency anemia secondary to blood loss (chronic); N39.3 Stress incontinence (female) (male); N39.0 Urinary tract infection, site not specified; N83.8 Other noninflammatory disorders of ovary, fallopian tube and broad ligament
CPT/HCPCS: 87088; 85025; 36415; 86900; 86850; 81025; 86901; 88307; 58573; 53899; 49329; J2704; J1200; J2250; J1170; J3010; J1100; J2175; J2710; J0690 ×2; J7120 ×3; J2405 ×2; 81003; 81015; 87086